=== PATIENT | male | born 1945 | race Caucasian/White ===

== ENCOUNTER 2016-12-02 21:14 | Emergency (ER) | payer OTHER ==
[~2016-12-02] VITALS: Ht 165.1 cm; Wt 72.7 kg
[~2016-12-02 21:14] MED LIST: ASPI1TAB PO; CARA1TAB6 PO; CARVEDILOL; COMBAER6 INH; FERROUS GLUCONATE; LOSARTAN; METFORMIN; MIRA3350 PO; NITR4TASL SL; OMEP40CA2 PO; SUCR1TA PO; [UNRECOGNIZED DRUG - OTHER]
[2016-12-02 21:15] VITALS: BP 159/90
[2016-12-02] MEDS ORDERED: ALBU17IN INH (21:31)
[2016-12-02] MEDS ORDERED: CARV3.12 PO (21:31)
[2016-12-02] MEDS ORDERED: METF500T13 PO (21:31)
[2016-12-02] MEDS ORDERED: AMLO5TAB2 PO (21:31)
[2016-12-02] MEDS ORDERED: VALS1TAB46 PO (21:31)
[2016-12-02] MEDS ORDERED: COMBAER6 INH (21:31)
[2016-12-02] MEDS ORDERED: COLA100C5 PO (21:31)
[2016-12-02] MEDS ORDERED: OMEP40CA2 PO (21:31)
--- NOTE | 2016-12-03 00:30 | REPUSA ---
CLINICAL HISTORY: Edema. COMMENTS: Real time sonography with duplex doppler of the right lower extremity was performed with attention to the major deep venous structures. Evaluation reveals the right common femoral, superficial femoral and popliteal veins to be completely compressible without intraluminal thrombus. There is normal spontaneous phasic flow and augmentation . The greater saphenous/common femoral vein junction is patent. IMPRESSION: No evidence of DVT in right lower extremity. Thank you for your kind referral of this patient.
== END 2016-12-03 00:40 | disposition left against medical advice (07) ==
LOC: M ED 21:14
DX: M54.31 Sciatica, right side (principal); I25.2 Old myocardial infarction; I10 Essential (primary) hypertension; E78.5 Hyperlipidemia, unspecified; K21.9 Gastro-esophageal reflux disease without esophagitis; F17.200 Nicotine dependence, unspecified, uncomplicated; Z95.5 Presence of coronary angioplasty implant and graft; Z82.49 Family history of ischemic heart disease and other diseases of the circulatory system; Z79.82 Long term (current) use of aspirin; Z79.899 Other long term (current) drug therapy

== ENCOUNTER 2018-07-10 13:58 | Emergency (ER) | payer MEDICARE, OTHER ==
[~2018-07-10] VITALS: Ht 167.6 cm; Wt 77.3 kg
[~2018-07-10 13:58] MED LIST changes: -FURO20TA2
[2018-07-10] MEDS ORDERED: FURO20TA2 (14:10)
[2018-07-10 15:32] LABS: BASO # 0.1 10^3/uL (0.0-0.2); BASO % 0.9 % (0.0-1.0); EOS # 0.4 10^3/uL (0.0-0.50); EOS % 4.7 % (0.0-3.0); HEMATOCRIT 36.8 % (42.0-52.0); HEMOGLOBIN 11.7 g/dl (13.5-17.5); LYMPH # 1.8 10^3/uL (1.5-4.5); LYMPH % 23.4 % (24.0-44.0); MEAN CORPUSCULAR HGB CONC 31.8 g/dl (32.0-36.5); MEAN CORPUSCULAR VOLUME 84.8 fl (80.0-96.0); MONO # 0.8 10^3/uL (0.0-0.8); MONO % 9.7 % (0.0-5.0); NEUTROPHILS # 4.7 10^3/uL (1.8-7.7); NEUTROPHILS % 60.8 % (36.0-66.0); PLATELET COUNT, AUTOMATED 362 10^3/uL (150-450); RED BLOOD COUNT 4.34 10^6/uL (4.30-6.10); WHITE BLOOD COUNT 7.8 10^3/uL (4.0-10.0)
[2018-07-10] MEDS: GASTROGRAFIN SOLUTION 30ML PO SCH ×2 (15:32→16:05)
[2018-07-10 15:51] LABS: INR 1.01; PROTHROMBIN TIME 13.4 SECONDS (12.1-14.4)
[2018-07-10 15:52] LABS: PARTIAL THROMBOPLASTIN TIME 37.5 SECONDS (25.4-37.6)
[2018-07-10 15:53] LABS: ALBUMIN 4.3 GM/DL (3.2-5.2); BILIRUBIN,DIRECT 0.1 MG/DL (0.0-0.2); BILIRUBIN,TOTAL 0.3 MG/DL (0.2-1.0); CALCIUM LEVEL 8.9 MG/DL (8.8-10.2); CREATININE FOR GFR 1.62 MG/DL (0.70-1.30); GLOMERULAR FILTRATION RATE 44.7 (>42); POTASSIUM SERUM 4.6 MEQ/L (3.5-5.1); TOTAL PROTEIN 8.5 GM/DL (6.4-8.2)
--- NOTE | 2018-07-10 17:53 | REP ---
CT ABDOMEN AND PELVIS WITH ORAL CONTRAST: CT abdomen and pelvis performed with oral contrast, without IV contrast. Sagittal and coronal reconstruction images are performed. Comparison made with prior study of 12/29/2015. There is calcified plaquing again seen bilaterally in the lung bases with mild interstitial fibrosis. The liver is grossly unremarkable as is the gallbladder. Calcified granulomas are seen in the spleen. The adrenals and pancreas are grossly unremarkable. There is mild to moderate right renal atrophy. There is no hydronephrosis or nephrolithiasis bilaterally. There is a 1 cm cyst in the lateral left kidney. There is moderate atherosclerotic calcification of the abdominal aorta with fusiform aneurysmal dilatation of the distal abdominal aorta 4.2 cm in maximum AP dimension. This has increased since prior study in 2016 when AP diameter was 3.3 cm. There is no adenopathy. There is no free air or free fluid. No bowel wall thickening is seen. There is no evidence of obstruction or diverticulitis. No pelvic mass is seen. There is a small left inguinal hernia containing fat. Metallic clips are seen in the right inguinal region. Urinary bladder is grossly unremarkable. IMPRESSION: No evidence of appendicitis, diverticulitis or bowel obstruction. Small left inguinal hernia contains fat. There is a distal abdominal aortic aneurysm 4.2 cm in AP dimension which has increased since the 2016 exam when it measured 3.3 cm. No other acute finding. Electronically Signed by Gallo Zabala MD 07/11/2018 01:31 P
[2018-07-10 18:32] VITALS: BP 172/99
--- NOTE | 2018-07-11 13:48 | ED PDOC ---
Post-Departure Follow-Up vivien savage and garth faxed formal report of ct abd/p for fu Jason Larios MD Jul 11, 2018 13:48
== END 2018-07-10 18:32 | disposition home or self-care (01) ==
LOC: M ED 13:58
DX: K59.00 Constipation, unspecified (principal); I71.4 Abdominal aortic aneurysm, without rupture; R10.9 Unspecified abdominal pain; Z79.899 Other long term (current) drug therapy; Z79.82 Long term (current) use of aspirin; Z79.84 Long term (current) use of oral hypoglycemic drugs
CPT/HCPCS: 36415; 74176; 80048; 80076; 83690; 85025; 85610; 85730; 86140; 86850; 86900; 86901; 99284; Q9963

== ENCOUNTER → 2018-07-10 | Outpatient (REF) | payer MEDICARE ==
[~2018-07-10] MED LIST changes: +ALBU17IN INH; +AMLO5TAB6 PO; +CARV3.12 PO; +COLA100C5 PO; +FURO20TA2; +METF500T13 PO; +VALS1TAB46 PO
== END ==
LOC: M LAB REF 15:44
PROVIDERS: ATTEND Internal Medicine
DX: R10.9 Unspecified abdominal pain (principal)

== ENCOUNTER → 2018-09-06 | Outpatient (REF) | payer MEDICARE ==
[~2018-09-06] MED LIST changes: -ASPI1TAB PO; +ASPI81TA26 PO; +FURO20TA2; -VALS1TAB46 PO; +VALS1TAB66 PO
== END ==
LOC: M LAB REF 12:56
PROVIDERS: ATTEND Internal Medicine
DX: E87.0 Hyperosmolality and hypernatremia (principal)

== ENCOUNTER → 2018-11-20 | Outpatient (REF) | payer MEDICARE ==
[2018-11-20 19:02] LABS: PERCENT SATURATION 11.2 % (19.7-50.0)
== END ==
LOC: M LAB REF 16:54
PROVIDERS: ATTEND Internal Medicine
DX: D50.9 Iron deficiency anemia, unspecified (principal)

== ENCOUNTER → 2018-11-28 | Outpatient (CLI) | payer MEDICARE ==
--- NOTE | 2018-11-29 04:10 | REP ---
Clinical: Lung screening. History smoking. Comparison: 06/24/2016 Technique: Axial low-dose noncontrast images from the thoracic inlet to the upper abdomen using lung screening technique. Findings: Moderate stable COPD/emphysematous changes as well as scattered partially calcified and noncalcified bilateral pleural plaques are again appreciated and relatively similar/stable in appearance. No acute consolidation, obvious parenchymal nodule or mass lesion identified. No pleural effusion. No pneumothorax. Tracheobronchial tree demonstrates mild bronchiectasis related to emphysematous disease. Mediastinum demonstrates atherosclerotic changes of the coronary arteries without cardiomegaly. Osseous structures are intact. Impression: Lung-RADS category II-S. COPD and emphysematous changes along with scattered nodular pleural plaques relatively stable. Electronically Signed by Mookie Briggs MD 11/29/2018 04:02 A
== END ==
LOC: M RAD 09:28
PROVIDERS: ATTEND Internal Medicine
DX: Z87.891 Personal history of nicotine dependence (principal); R91.8 Other nonspecific abnormal finding of lung field; J44.9 Chronic obstructive pulmonary disease, unspecified

== ENCOUNTER → 2019-02-11 | Outpatient (REF) | payer MEDICARE ==
[~2019-02-11] MED LIST changes: -OMEP40CA2 PO; +OMEP40CA97 PO
[2019-02-11 17:25] LABS: PERCENT SATURATION 8.1 % (19.7-50.0)
== END ==
LOC: M LAB REF 17:02
PROVIDERS: ATTEND Internal Medicine
DX: D50.9 Iron deficiency anemia, unspecified (principal)

== ENCOUNTER → 2019-04-26 | Outpatient (REF) | payer MEDICARE ==
[2019-04-26 14:06] LABS: PERCENT SATURATION 7.7 % (19.7-50.0)
== END ==
LOC: M LAB REF 13:23
PROVIDERS: ATTEND Internal Medicine
DX: D50.9 Iron deficiency anemia, unspecified (principal)

== ENCOUNTER 2019-06-23 11:07 | Observation (INO) | payer MEDICARE ==
[~2019-06-23] VITALS: Ht 167.6 cm; Wt 79.8 kg
[2019-06-23] MEDS ORDERED: ISOVUE-370 76% 100ML VIAL (Q9967) As Ordered ONE (11:30)
[2019-06-23 11:36] LABS: BASO # 0.1 10^3/uL (0.0-0.2); BASO % 1.1 % (0.0-1.0); EOS # 0.5 10^3/uL (0.0-0.5); EOS % 5.8 % (0.0-3.0); HEMATOCRIT 30.4 % (42.0-52.0); HEMOGLOBIN 9.4 g/dl (13.5-17.5); LYMPH # 1.5 10^3/uL (1.5-5.0); LYMPH % 17.1 % (24.0-44.0); MEAN CORPUSCULAR HEMOGLOBIN 25.5 pg (27.0-33.0); MEAN CORPUSCULAR HGB CONC 30.9 g/dl (32.0-36.5); MEAN CORPUSCULAR VOLUME 82.4 fl (80.0-96.0); MONO # 0.7 10^3/uL (0.0-0.8); NEUTROPHILS # 5.8 10^3/uL (1.5-8.5); NEUTROPHILS % 67.6 % (36.0-66.0); PLATELET COUNT, AUTOMATED 302 10^3/uL (150-450); RED BLOOD COUNT 3.69 10^6/uL (4.30-6.10); WHITE BLOOD COUNT 8.5 10^3/uL (4.0-10.0)
[2019-06-23] MEDS ORDERED: ALBU83IN NEB (11:51)
[2019-06-23] MEDS ORDERED: TELM1TAB33 PO (11:51)
[2019-06-23] MEDS ORDERED: ADV500INH INH (11:51)
[2019-06-23] MEDS ORDERED: ATOR40TA75 PO (11:51)
[2019-06-23] MEDS ORDERED: LINZ145C PO (11:51)
[2019-06-23] MEDS ORDERED: B-122500 PO (11:51)
[2019-06-23] MEDS ORDERED: METOCLOPRAMIDE INJ 10MG/2ML VIAL (J2765) IV ONE (12:00)
[2019-06-23 12:17] LABS: ALBUMIN 3.9 GM/DL (3.2-5.2); ALT/SGPT 14 U/L (12-78); BILIRUBIN,DIRECT 0.1 MG/DL (0.0-0.2); BILIRUBIN,TOTAL 0.3 MG/DL (0.2-1.0); BLOOD UREA NITROGEN 11 MG/DL (7-18); CALCIUM LEVEL 8.5 MG/DL (8.8-10.2); CARBON DIOXIDE LEVEL 22 MEQ/L (21-32); CHLORIDE LEVEL 101 MEQ/L (98-107); CK-MB VALUE MASS 2.5 NG/ML (<3.6); CPK CREATINE PHOSPHOKINASE 115 U/L (39-308); CREATININE FOR GFR 1.53 MG/DL (0.70-1.30); GLOMERULAR FILTRATION RATE 47.6 (>42); GLUCOSE, FASTING 147 MG/DL (70-100); MB/CK RELATIVE INDEX 2.17 (< OR =4); POTASSIUM SERUM 4.5 MEQ/L (3.5-5.1); SODIUM LEVEL 130 MEQ/L (136-145); TOTAL PROTEIN 7.6 GM/DL (6.4-8.2); TROPONIN I < 0.02 NG/ML (< 0.10)
--- NOTE | 2019-06-23 12:17 | REP ---
CT BRAIN WITHOUT IV CONTRAST: CT brain performed without IV contrast. Coronal reconstruction images are performed. There is moderate atrophy. There is mild periventricular small vessel ischemic change. There is no midline shift or mass effect. Zabala-white differentiation is otherwise well maintained. There is no acute intracranial hemorrhage or extra-axial fluid collection. There are mild vascular calcifications in the carotid siphons. There is mild mucosal thickening in the posterior left maxillary sinus. IMPRESSION: Chronic changes, as discussed above. No acute intracranial process identified. Electronically Signed by Gallo Zabala MD 06/23/2019 06:38 P
--- NOTE | 2019-06-23 12:29 | REP ---
CT CERVICAL SPINE: CT cervical spine performed without IV contrast. Sagittal and coronal reconstruction images are performed. There is no compression fracture. There is a slight retrolisthesis of C4 on C5 as well as C5 on C6, which appears to be due to posterior facet arthropathy. Small ligamentous calcification is seen posteriorly at C4-5. There is mild spurring of C3 through C6. There is moderate disc space narrowing and subchondral sclerosis at C3-4, C4-5, and C5-6. There is diffuse narrowing and sclerosis at the posterior facet joints with mild spurring. No abnormal density is seen in the spinal canal. There does appear to be some degree of spinal stenosis at the C4-5 level. IMPRESSION: Degenerative changes, as above. No acute fracture or dislocation. Electronically Signed by Gallo Zabala MD 06/23/2019 06:38 P
[2019-06-23] MEDS ORDERED: MECLIZINE 25 MG TABLET PO ONE ×2 (13:00→18:00)
--- NOTE | 2019-06-23 13:45 | REP ---
CT ANGIOGRAM OF THE NECK: CT angiogram neck performed following the intravenous administration of 75 mL of Isovue-370. Sagittal and coronal reconstruction images are performed. The aortic arch is normal in caliber with mild scattered atherosclerotic calcification and no evidence of dissection of the visualized thoracic aorta. Brachiocephalic artery demonstrates mild calcific plaquing and narrowing. Right common carotid artery demonstrates mild scattered calcified plaquing and narrowing with no significant stenosis or occlusion. Luminal narrowing is less than 50%. Left common carotid artery demonstrates mild scattered plaquing and narrowing with luminal narrowing less than 50% and no stenosis or occlusion. Vertebral arteries are symmetrical in appearance and patent with no significant stenosis or occlusion. Left subclavian artery is mildly narrowed proximally, with mild atherosclerotic plaquing. No mass is seen in the visualized neck soft tissues. There are degenerative changes of the cervical spine. IMPRESSION: Mild narrowing of bilateral common carotid and internal carotid arteries with no evidence of significant stenosis or occlusion. Vertebral arteries patent and symmetrical. Electronically Signed by Gallo Zabala MD 06/23/2019 06:39 P
--- NOTE | 2019-06-23 13:49 | REP ---
CT ANGIOGRAM OF THE BRAIN: CT angiogram of the brain is performed following the intravenous administration of 75 mL of Isovue-370. Sagittal, coronal, and 3D MIP reconstruction images are performed. Vertebral arteries are bilaterally patent and symmetrical in appearance. Basilar artery is normal in caliber with no stenosis. Posterior cerebral arteries are patent and symmetrical. There is mild bilateral plaquing and narrowing in the carotid siphons. Anterior middle cerebral arteries are patent and symmetrical in appearance. Anterior communicating arteries are patent. I see no aneurysm or AVM. IMPRESSION: Mild narrowing of the carotid siphons bilaterally. Otherwise, no evidence of intracerebral artery occlusion or definite stenosis. Electronically Signed by Gallo Zabala MD 06/23/2019 06:39 P
--- NOTE | 2019-06-23 13:53 | REP ---
CHEST, SINGLE VIEW: Single view of the chest is performed and compared to prior study of 06/08/2015. There is chronic bibasilar interstitial fibrosis, which appears stable. No new infiltrate is seen. Heart is upper limits of normal in size. There is mild calcification and tortuosity of the thoracic aorta. Mediastinal silhouette is unchanged. IMPRESSION: Stable chronic changes with no definite acute infiltrate. Electronically Signed by Gallo Zabala MD 06/23/2019 06:39 P
--- NOTE | 2019-06-23 14:12 | REP ---
RIGHT WRIST, FOUR VIEWS: Four views of right wrist performed. There is no acute fracture, dislocation, or intrinsic bone disease. Linear radiodensities are seen in the soft tissues lateral to the carpal bones, which may represent surgical sutures. Electronically Signed by Gallo Zabala MD 06/23/2019 06:40 P
[2019-06-23] MEDS ORDERED: IPRATROPIUM 0.5MG/ALBUTEROL 2.5MG INH SOL UD 3ML (DUONEB)(J7620) NEB ONE (15:15)
--- NOTE | 2019-06-23 16:06 | REPVR ---
PROCEDURE INFORMATION: Exam: MR Head Without Contrast Exam date and time: 06/23/2019 2:31 PM Age: 73 years old Clinical indication: Dizziness; Patient HX: Severe vertigo, nki, no priors TECHNIQUE: Imaging protocol: MR of the head without contrast. COMPARISON: CT Head without contrast 06/23/2019 11:33 AM FINDINGS: Brain: There is no restricted diffusion within the brain to suggest an acute infarct. There are scattered foci of FLAIR hyperintensity within the cerebral white matter. There is no mass effect or restricted diffusion associated with these foci. In a patient this age, this likely represents chronic small vessel ischemic disease. No cerebral edema. Mild nonspecific dilatation of the right superior ophthalmic vein. This measures 4 mm in diameter. No magnetic susceptibility intracerebral hemosiderin is visualized. No intracranial mass effect Ventricles: There is mild to moderate prominence of the ventricles and sulci, compatible with atrophy. Bones/joints: Unremarkable, as visualized. Soft tissues: Unremarkable, as visualized. Sinuses: Minimal mucosal thickening of the left sphenoid sinus and a few left ethmoid air cells. Minimal mucosal thickening of the left frontal sinus. Mastoid air cells: No mastoid effusion. Orbits: No acute abnormality visualized. IMPRESSION: 1. There is no restricted diffusion within the brain to suggest an acute infarct. 2. There are scattered foci of FLAIR hyperintensity within the cerebral white matter. In a patient this age, this likely represents chronic small vessel ischemic disease. 3. Mild to moderate atrophy. 4. Additional findings described above. Electronically signed by: Maikel White On 06/23/2019 16:06:14 PM
[2019-06-23] MEDS ORDERED: ONDA4TAB6 PO (16:32)
[2019-06-23] MEDS ORDERED: MECL1TAB31 PO (16:32)
[2019-06-23] MEDS ORDERED: CYAN100050 PO (17:50)
[2019-06-23] MEDS ORDERED: VENTAER INH (17:50)
[2019-06-23] MEDS ORDERED: FERR325T16 PO (17:53)
[2019-06-23] MEDS ORDERED: PROC2.5C PR (17:53)
[2019-06-23] MEDS ORDERED: DEXTROSE 50% 50 ML SYRINGE IV PRN (18:00)
[2019-06-23] MEDS ORDERED: GLUCAGON FOR INJ 1 MG VIAL (J1610) SC PRN (18:00)
[2019-06-23] MEDS ORDERED: ACETAMINOPHEN TAB 650MG DOSE (2X325MG) PO PRN (18:00)
[2019-06-23] MEDS ORDERED: GLUCOSE 4 GM CHEW TABLET PO PRN (18:00)
--- NOTE | 2019-06-23 18:12 | HPEPDOC ---
General Date of Admission Jun 23, 2019 at 11:08 Date of Service: Jun 23, 2019 Chief Complaint The patient is a 73-year-old male who presented to the emergency room with complaints of dizziness, described as the room spinning History of Present Illness Patient is a 73-year-old male with a PMhx of CAD s/p stent (2015), HTN, DLP, COPD, Irritable bowel syndrome and GERD who presented to the emergency room with complaints of dizziness that occurred suddenly this morning. Patient reports that he reported the room spinning. He walked his bathroom and had fallen.. He noted that he had landed on his R wrist and had bumped his head. Patient denied any loss of consciousness. Patient does report having episodes of nausea and vomiting with greater than 5 episodes today. Denied any blood, but containing mostly food items. Patient denies any ringing of his years. He does have poor hearing. In general any blurred vision or headaches. Patient does not express any fevers or chills. Denies any recent upper respiratory tract infections. At this time patient denies any shortness of breath, chest pain, palpitations, cough, abdominal pain, constipation, diarrhea, or urinary discomfort. Patient does report a poor appetite and is has experienced some weight loss. Home Medications Scheduled Amlodipine Besylate (Amlodipine Besylate) 5 Mg Tab, 5 MG PO DAILY, (Reported) Aspirin (Aspirin EC) 81 Mg Tab, 81 MG PO DAILY, (Reported) Atorvastatin Calcium (Atorvastatin Calcium) 40 Mg Tablet, 40 MG PO QHS, (Reported) Carvedilol (Carvedilol) 3.125 Mg Tab, 3.125 MG PO BID, (Reported) Cyanocobalamin (Vitamin B-12) (Vitamin B-12) 1,000 Mcg Tablet, 1,000 MCG PO DAILY, (Reported) Ferrous Gluconate (Ferrous Gluconate) 324 Mg Tablet, 324 MG PO Q2D, (Reported) Ipratropium/Albuterol Sulfate (Combivent Respimat 20-100 Mcg) 1 Aer Aer, 1 PUFF INH QID, (Reported) Metformin HCl (Metformin HCl) 500 Mg Tab, 500 MG PO BID, (Reported) Omeprazole (Omeprazole) 40 Mg Cap, 40 MG PO DAILY, (Reported) Salmeterol/Fluticasone (Advair 500-50 Diskus) 1 Each Blst.w.dev, 1 PUFF INH BID, (Reported) Telmisartan (Telmisartan) 20 Mg Tablet, 20 MG PO QHS, (Reported) Scheduled PRN Albuterol Sulf (Albuterol Sulfate) 2.5 Mg/3 Ml Vial.neb, 1 VIAL NEB Q4H PRN for SOB/WHEEZING, (Reported) Albuterol Sulfate (Ventolin Hfa) 18 Gm Hfa.aer.ad, 2 PUFF INH Q4H PRN for wheezing, (Reported) Hydrocortisone (Proctosol-Hc) 28.35 Gm Crm.pe.yady, [address] DAILY PRN for ITCHING/SWELLING, (Reported) Linaclotide (Linzess) 145 Mcg Capsule, 145 MCG PO DAILY PRN for CONSTIPATION, (Reported) Meclizine HCl (Meclizine HCl) 25 Mg Tablet, 25 MG PO Q8H PRN for VERTIGO/DIZZINESS Nitroglycerin (Nitrostat) 0.4 Mg Subl, 0.4 MG SL for ANGINA, (Reported) Ondansetron (Ondansetron Odt) 4 Mg Tab.rapdis, 4 MG PO Q6-8HP PRN for nausea/vomiting Allergies Coded Allergies: No Known Allergies (Unverified , 06/23/19) Past Medical History Medical History CAD s/p stent (2016), HTN, DLP, COPD, Irritable bowel syndrome and GERD Surgical History AAA s/p correction (2019) Family History - Mother with a history of bone cancer Social History - Denies the use of alcohol or illicit drugs; patient reports is a smoker of 60 years at 1 PPD - Denies recent travel or sick contacts - Lives with - Occupation; retired bone / snow shoveler Review of Systems Other systems 10 point review of systems complete, all negative otherwise stated in HPI Vital Signs - Vitals: BP 151/80, HR 87, RR 18, Sat 95%RA, Temp 97.6F - General: Lying in bed, No acute distress, Speaking in full sentences, AAOx3 - HEENT: NC, AT, PERRLA - CVS: RRR, +S1S2 - Lungs: Fair air entry bilaterally, No appreciable wheezing / rales / rhonchi - Abdomen: Soft, Non-distended, Non-tender - Extremities: No lower extremity edema, No calf tenderness - Neuro: No focal motor or sensory deficit - Skin: No visible rashes Laboratory Data Labs 24H Laboratory Tests 2 06/23/19 11:24: POC Glucose (Misc Panel) 153H, POC Sodium (Misc Panel) 132L, POC Potassium (Misc Panel) 4.5, POC Chloride (Misc Panel) 100, POC Total CO2 (Misc Panel) 22.0L, POC Blood Urea Nitrogen (Misc Panel 10, POC Ionized Calcium (Misc Panel) 4.8, POC Creatinine (Misc Panel) 1.5H, POC Hematocrit (Misc Panel) 32.0L 06/23/19 11:26: Immature Granulocyte % (Auto) 0.4, Neutrophils (%) (Auto) 67.6H, Lymphocytes (%) (Auto) 17.1L, Monocytes (%) (Auto) 8.0H, Eosinophils (%) (Auto) 5.8H, Basophils (%) (Auto) 1.1H, Neutrophils # (Auto) 5.8, Lymphocytes # (Auto) 1.5, Monocytes # (Auto) 0.7, Eosinophils # (Auto) 0.5, Basophils # (Auto) 0.1, Nucleated Red Blood Cells % (auto) 0.0, Anion Gap 7L, Glomerular Filtration Rate 47.6, Lactic Acid Level 2.7*H, Calcium Level 8.5L, Total Bilirubin 0.3, Direct Bilirubin 0.1, Aspartate Amino Transf (AST/SGOT) 15, Alanine Aminotransferase (ALT/SGPT) 14, Alkaline Phosphatase 65, Ammonia 22, Total Creatine Kinase 115, Creatine Kinase MB 2.5, Creatine Kinase MB Relative Index 2.17, Troponin I < 0.02, Total Protein 7.6, Albumin 3.9, Albumin/Globulin Ratio 1.05, Thyroid Stimulating Hormone (TSH) 1.720 06/23/19 11:30: Bedside Prothrombin Time INR 1.1, Prothrombin Time (MISC) 12.8 CBC/BMP Laboratory Tests 06/23/19 11:26 Plan / VTE VTE Prophylaxis Ordered?: Yes Plan Plan Vertigo - likely 2/2 BPPV, unlikely 2/2 CVA - Presented to the emergency room after expressing a sudden onset of vertigo described as the room spinning - Patient has no chest pain, shortness of breath, palpitations - Has not experienced any fevers, chills recently or any recent upper respiratory tract infections - CT head 06/22: Chronic changes, as discussed above. No acute intracranial process identified. - CTA neck 3/: Mild narrowing of bilateral common carotid and internal carotid arteries with no evidence of significant stenosis or occlusion. Vertebral arteries patent and symmetrical. - CTA brain 3: Mild narrowing of the carotid siphons bilaterally. Otherwise, no evidence of intracerebral artery occlusion or definite stenosis. - Brain MRI 3: 1. There is no restricted diffusion within the brain to suggest an acute infarct. 2. There are scattered foci of FLAIR hyperintensity within the cerebral white matter. In a patient this age, this likely represents chronic small vessel ischemic disease. 3. Mild to moderate atrophy. 4. Additional findings described above. - Patient has been given meclizine in the emergency room and is currently asymptomatic at rest - Patient be given a dose of meclizine now and will hold off on further dosing after midnight - Physical therapy with focus on vestibular therapy has been ordered for tomorrow morning - Will place patient in observation status with anticipation for discharge tomorrow morning CKD3 - Patient has received contrast in the emergency room - Will start patient on IV fluid hydration for renal protective effects - Will continue to monitor renal function Lactic acidosis - etiology not yet clear - Patient remains afebrile and hemodynamically stable - No leukocytosis noted - CXR 3: Stable chronic changes with no definite acute infiltrate. - Will check urinalysis - Will start IV fluids Fall - CT cervical spine 3: Degenerative changes, as above. No acute fracture or dislocation. - Wrist XR 3: There is no acute fracture, dislocation, or intrinsic bone dise ase. Linear radiodensities are seen in the soft tissues lateral to the carpal bones, which may represent surgical sutures. - c/w PT CAD s/p stent (2015) - c/w Carvedilol, ASA and Atorvastatin - c/w Nitroglycerine PRN HTN - c/w Amlodipine, Carvedilol with holding parameters - Will hold Telmisartan (re: Elevated Cr w/ contrast given) DLP - c/w Atorvastatin advair Chronic COPD - No evidence of exacerbation - c/w inhaled therapy as ordered Irritable bowel syndrome - Patient takes Linzess as an outpatient; will resume on discharge GERD - c/w Omeprazole DVT prophylaxis - Will start Heparin MARK ANTHONY ADAM MD Jun 23, 2019 18:12
[2019-06-23] MEDS ORDERED: NITROGLYCERIN 0.4 MG SUBL TABLET SL PRN (18:15)
[2019-06-23] MEDS ORDERED: IPRATROPIUM 0.5MG/ALBUTEROL 2.5MG INH SOL UD 3ML (DUONEB)(J7620) NEB PRN (18:15)
[2019-06-23 18:50] VITALS: BP 168/84
[2019-06-23 18:55] LABS: CALCIUM LEVEL 9.2 MG/DL (8.8-10.2); CREATININE FOR GFR 1.58 MG/DL (0.70-1.30); GLOMERULAR FILTRATION RATE 45.9 (>42); POTASSIUM SERUM 4.9 MEQ/L (3.5-5.1)
[2019-06-23] MEDS: NS 1,000 ML IV SCH (19:07)
[2019-06-23] MEDS: IPRATROPIUM 0.5MG/ALBUTEROL 2.5MG INH SOL UD 3ML (DUONEB)(J7620) NEB SCH (20:00)
--- NOTE | 2019-06-23 20:48 | ECGEPIP ---
[facility] - ED Test Date: 2019-06-23 Pat Name: CRISTIANO COLLINS Department: Room: - Gender: Male [employer] Engineer: : 1945 Requested By: ADALI Cantu Order Number: [id number] Reading MD: Douglas Mckeon Measurements Intervals [place] Rate: 73 P: 43 SD: 202 QRS: 28 QRSD: 93 T: 39 QT: 365 QTc: 403 Interpretive Statements SINUS RHYTHM BENIGN EARLY REPOLARIZATION SIMILAR TO 12/28/15 Electronically Signed on 06-23-2019 20:48:03 EST by Douglas Mckeon
[2019-06-23] MEDS: HumaLOG INSULIN (NovoLOG) PER UNIT SC SCH (21:00)
[2019-06-23] MEDS: ATORVASTATIN 20 MG TAB PO SCH (21:17)
[2019-06-23] MEDS: HEPARIN SOD (PORCINE) 5000 UNITS/ML VIAL (J1644 PER 1000UNITS) SC SCH (21:18)
[2019-06-23] MEDS: CARVedilol 3.125 MG TAB PO SCH (21:18)
[2019-06-23] MEDS: ADVAIR HFA 230/21MCG INHALER INH SCH (21:59)
[2019-06-23 22:00] VITALS: BP 128/68
[2019-06-23 22:43] LABS: OSMOLALITY URINE 264 MOSM/KG (500-800)
[2019-06-23 23:04] LABS: CREATININE,RANDOM URINE 64.9 MG/DL; SODIUM,RANDOM URINE 26 MEQ/L
[2019-06-24] MEDS: IPRATROPIUM 0.5MG/ALBUTEROL 2.5MG INH SOL UD 3ML (DUONEB)(J7620) NEB SCH ×4 (04:42→19:48)
[2019-06-24] MEDS ORDERED: methylPREDNISolone INJ 125 MG/2 ML VIAL (J2930) IV ONE (05:15)
[2019-06-24] MEDS: NS 1,000 ML IV SCH (05:48)
[2019-06-24] MEDS: HEPARIN SOD (PORCINE) 5000 UNITS/ML VIAL (J1644 PER 1000UNITS) SC SCH ×3 (05:48→21:44)
[2019-06-24 06:00] VITALS: BP 127/95
[2019-06-24 06:03] LABS: BASO # 0.1 10^3/uL (0.0-0.2); BASO % 0.8 % (0.0-1.0); EOS # 0.3 10^3/uL (0.0-0.5); EOS % 4.1 % (0.0-3.0); HEMATOCRIT 27.1 % (42.0-52.0); HEMOGLOBIN 8.5 g/dl (13.5-17.5); LYMPH # 1.4 10^3/uL (1.5-5.0); LYMPH % 17.8 % (24.0-44.0); MEAN CORPUSCULAR HEMOGLOBIN 25.5 pg (27.0-33.0); MEAN CORPUSCULAR HGB CONC 31.4 g/dl (32.0-36.5); MEAN CORPUSCULAR VOLUME 81.4 fl (80.0-96.0); MONO # 0.6 10^3/uL (0.0-0.8); MONO % 7.7 % (0.0-5.0); NEUTROPHILS # 5.2 10^3/uL (1.5-8.5); NEUTROPHILS % 69.1 % (36.0-66.0); PLATELET COUNT, AUTOMATED 290 10^3/uL (150-450); RED BLOOD COUNT 3.33 10^6/uL (4.30-6.10); WHITE BLOOD COUNT 7.6 10^3/uL (4.0-10.0)
[2019-06-24 06:19] LABS: CALCIUM LEVEL 8.6 MG/DL (8.8-10.2); CREATININE FOR GFR 1.61 MG/DL (0.70-1.30); GLOMERULAR FILTRATION RATE 44.9 (>42); MAGNESIUM LEVEL 2.1 MG/DL (1.8-2.4); POTASSIUM SERUM 4.3 MEQ/L (3.5-5.1)
[2019-06-24] MEDS: HumaLOG INSULIN (NovoLOG) PER UNIT SC SCH ×4 (07:30→21:44)
[2019-06-24] MEDS: ADVAIR HFA 230/21MCG INHALER INH SCH ×2 (08:17→22:40)
--- NOTE | 2019-06-24 08:22 | REP ---
Portable chest x-ray: Single view. History: Dyspnea. Comparison chest x-ray: June 23, 2019. Findings: Monitoring electrodes overlie the chest. Heart is not felt to be enlarged. Interstitial markings are little prominent in the bases unchanged. There are granulomatous calcifications in the perihilar region on the left. No new infiltrate. The aorta is slightly tortuous and calcific. Pulmonary vasculature is not increased. Impression: No acute disease. Electronically Signed by Tim Hall MD 06/24/2019 08:13 A
--- NOTE | 2019-06-24 09:44 | IPNPDOC ---
Text Note Date of Service The patient was seen on 06/24/19. NOTE S: Pt examined at bedside. Pt states that he is doing better than he was on ad mission. Admits to continued episodes of dizziness upon standing but feels back to normal when he is laying in bed. Pt states that the meclizine helped his symptoms. No acute events overnight. PE: Vitals: see below General: Pt sitting comfortably in bed, A&Ox3. HEENT: NCAT, EOMI, anicteric sclera, MMM CV: RRR, no murmurs or clicks or rub. No edema RESP: Diffuse wheezes located within the right lung francis ABD: soft, NT, ND. Benign EXTREMITIES: 2+ radial pulses b/l, able to move all extremities NEURO: no focal deficits or acute changes A: Pt is a 73 YOM who appears to be suffering from BPPV which led him to falling in his home on 06/23/2019. Pt states that his vertiginous symptoms have been improving and are not present at rest but are exacerbated upon moving. Pt has not been ambulating the the restroom or within the halls due to his symptoms. Pt was encouraged to ambulate as tolerable. P: Vertigo - likely 2/2 BPPV, unlikely 2/2 CVA - Presented to the emergency room after expressing a sudden onset of vertigo described as the room spinning - Patient continues to have no chest pain, shortness of breath, palpitations - Has not experienced any fevers, chills recently or any recent upper respiratory tract infections - CT head 06/22: Chronic changes, as discussed above. No acute intracranial process identified. - CTA neck 06/22: Mild narrowing of bilateral common carotid and internal carotid arteries with no evidence of significant stenosis or occlusion. Vertebral arteries patent and symmetrical. - CTA brain 06/22: Mild narrowing of the carotid siphons bilaterally. Otherwise, no evidence of intracerebral artery occlusion or definite stenosis. - Brain MRI 3: 1. There is no restricted diffusion within the brain to suggest an acute infarct. 2. There are scattered foci of FLAIR hyperintensity within the cerebral white matter. In a patient this age, this likely represents chronic small vessel ischemic disease. 3. Mild to moderate atrophy. 4. Additional find ings described above. - s/p meclizine; will continue to hold medication - Has worked with PT today; no evidence of of vertigo Acute Hypoxia - possibly 2/2 acute exacerbation of underlying lung disease, possibly 2/2 fluid overload - Reported shortness of breath that was more significant with ambulation - Required supplemental oxygen after he was noted to be 86% on room air - Repeat CXR shows no changes from previous imaging. - Pt has a history of unspecified restrictive lung disease based on past PFT - Pt will be started on IV solumedrol 60mg Q8 for possible exacerbation of underlying lung disease - Will DC IV fluids - Will continue to monitor and encourage incentive spirometry CKD3 - Patient has received contrast in the emergency room - Patient treated with IV fluid hydration for renal protective effects. - Cr has increased - Will D/c IVF (re; Hypoxia) s/p Lactic acidosis - etiology not yet clear - Patient remains afebrile and hemodynamically stable - No leukocytosis noted - Repeat CXR 06/23: Stable chronic changes with no definite acute infiltrate. - UA shows no acute infection - May be reactionary to possible COPD exacerbation Fall - CT cervical spine 06/22: Degenerative changes, as above. No acute fracture or dislocation. - Wrist XR 06/22: There is no acute fracture, dislocation, or intrinsic bone disease. Linear radiodensities are seen in the soft tissues lateral to the carpal bones, which may represent surgical sutures. - c/w PT and fall risk precautions CAD s/p stent (2015) - c/w Carvedilol, ASA and Atorvastatin - c/w Nitroglycerine PRN HTN - c/w Amlodipine, Carvedilol with holding parameters - Will hold Telmisartan (re: Elevated Cr w/ contrast given) DLP - c/w Atorvastatin advair Chronic COPD - No evidence of exacerbation - c/w inhaled therapy as ordered Irritable bowel syndrome - Patient takes Linzess as an outpatient; will resume on discharge GERD - c/w Omeprazole DVT prophylaxis - Will continue Heparin DISPO: Anticipate D/c tomorrow morning pending PT evaluation and response to steroids. VS,Fishbone, I+O VS, Fishbone, I+O Laboratory Tests 06/23/19 11:26 06/23/19 18:11 06/24/19 05:24 Vital Signs Date Time Temp Pulse Resp B/P (MAP) Pulse Ox O2 Delivery O2 Flow Rate FiO2 06/24/19 06:00 98.2 99 20 127/95 (662) 89 Nasal Cannula 1.0 I&O- Last 24 Hours up to 6 AM 06/24/19 06:00 Intake Total 960 ml Output Total 575 ml Balance 385 ml GME ATTESTATION GME ATTESTATION My faculty preceptor for this patient encounter was physically present during the encounter and was fully available. All aspects of the patient interview, examination, medical decision making process, and medical care plan development were reviewed and approved by the faculty preceptor. The faculty preceptor is aware and concurs with the plan as stated in the body of this note and will attest to such by his/her cosignature. ATTENDING NOTE I, Yanick Adam, have independently examined this patient and performed my own physical exam, as well as reviewed the documentation and edited where necessary. I have discussed in detail with the resident / student the findings and plan of treatment as documented by the resident / student and edited their note. I agree with their findings and treatment plan and have edited their documentation. I will continue to follow the patient during this hospital stay. FAVIOLA HAAS OMS-3 Jun 24, 2019 09:44 YANICK ADAM MD Jun 24, 2019 15:21
[2019-06-24] MEDS: OMEPRAZOLE 20 MG CAP PO SCH (11:02)
[2019-06-24] MEDS: CARVedilol 3.125 MG TAB PO SCH ×2 (11:02→21:43)
[2019-06-24] MEDS: ASPIRIN 81 MG ENTERIC TAB PO SCH (11:02)
[2019-06-24] MEDS: amLODIPine 5 MG TAB PO SCH (11:03)
[2019-06-24 11:58] LABS: HEMATOCRIT 30.5 % (42.0-52.0); HEMOGLOBIN 9.5 g/dl (13.5-17.5); MEAN CORPUSCULAR HEMOGLOBIN 25.7 pg (27.0-33.0); MEAN CORPUSCULAR HGB CONC 31.1 g/dl (32.0-36.5); MEAN CORPUSCULAR VOLUME 82.4 fl (80.0-96.0); PLATELET COUNT, AUTOMATED 303 10^3/uL (150-450); WHITE BLOOD COUNT 5.5 10^3/uL (4.0-10.0)
[2019-06-24 12:32] LABS: CALCIUM LEVEL 9.1 MG/DL (8.8-10.2); CREATININE FOR GFR 1.84 MG/DL (0.70-1.30); GLOMERULAR FILTRATION RATE 38.5 (>42); POTASSIUM SERUM 4.5 MEQ/L (3.5-5.1)
[2019-06-24] MEDS: methylPREDNISolone INJ 125 MG/2 ML VIAL (J2930) IV SCH ×2 (12:53→21:44)
[2019-06-24 14:00] VITALS: BP 133/90
[2019-06-24 16:00] VITALS: BP_SYST 138; BP_SYST 139; BP_SYST 150; BP_DIAS 67; BP_DIAS 72; BP_DIAS 88
[2019-06-24] MEDS: ATORVASTATIN 20 MG TAB PO SCH (21:43)
[2019-06-24 22:00] VITALS: BP 154/67
[2019-06-25] MEDS: IPRATROPIUM 0.5MG/ALBUTEROL 2.5MG INH SOL UD 3ML (DUONEB)(J7620) NEB SCH ×3 (01:19→13:31)
[2019-06-25] MEDS: HEPARIN SOD (PORCINE) 5000 UNITS/ML VIAL (J1644 PER 1000UNITS) SC SCH ×2 (05:35→13:13)
[2019-06-25] MEDS: methylPREDNISolone INJ 125 MG/2 ML VIAL (J2930) IV SCH (05:35)
[2019-06-25 06:00] VITALS: BP 152/73
[2019-06-25 06:10] LABS: BASO % 0.2 % (0.0-1.0); HEMATOCRIT 27.5 % (42.0-52.0); HEMOGLOBIN 8.7 g/dl (13.5-17.5); LYMPH # 0.8 10^3/uL (1.5-5.0); LYMPH % 6.4 % (24.0-44.0); MEAN CORPUSCULAR HEMOGLOBIN 25.6 pg (27.0-33.0); MEAN CORPUSCULAR HGB CONC 31.6 g/dl (32.0-36.5); MEAN CORPUSCULAR VOLUME 80.9 fl (80.0-96.0); MONO # 0.2 10^3/uL (0.0-0.8); MONO % 1.9 % (0.0-5.0); NEUTROPHILS # 11.1 10^3/uL (1.5-8.5); NEUTROPHILS % 90.4 % (36.0-66.0); PLATELET COUNT, AUTOMATED 331 10^3/uL (150-450); WHITE BLOOD COUNT 12.3 10^3/uL (4.0-10.0)
[2019-06-25 06:35] LABS: CREATININE FOR GFR 1.76 MG/DL (0.70-1.30); GLOMERULAR FILTRATION RATE 40.5 (>42); MAGNESIUM LEVEL 2.2 MG/DL (1.8-2.4); POTASSIUM SERUM 4.7 MEQ/L (3.5-5.1)
[2019-06-25] MEDS: ADVAIR HFA 230/21MCG INHALER INH SCH (07:52)
[2019-06-25 09:01] VITALS: BP 152/73
[2019-06-25] MEDS: amLODIPine 5 MG TAB PO SCH (09:01)
[2019-06-25] MEDS: CARVedilol 3.125 MG TAB PO SCH (09:01)
[2019-06-25] MEDS: ASPIRIN 81 MG ENTERIC TAB PO SCH (09:01)
[2019-06-25] MEDS: HumaLOG INSULIN (NovoLOG) PER UNIT SC SCH ×2 (09:01→13:12)
[2019-06-25] MEDS: OMEPRAZOLE 20 MG CAP PO SCH (09:02)
[2019-06-25] MEDS ORDERED: PRED10TA2 PO (10:49)
--- NOTE | 2019-06-25 13:48 | DS.PDOC ---
Discharge Summary General Date of Admission Jun 23, 2019 at 11:08 Date of Discharge 06/25/2019 Discharge Summary PROCEDURES PERFORMED DURING STAY: [None]. ADMITTING DIAGNOSES / DISCHARGE DIAGNOSES: 1. Vertigo - 2/2 Labyrinthitis 2. Acute COPD exacerbation COMPLICATIONS/CHIEF COMPLAINT: Vertigo. HISTORY OF PRESENT ILLNESS: Patient is a 73-year-old male with a PMhx of CAD s/p stent (2016), HTN , DLP, COPD, Irritable bowel syndrome and GERD who presented to the emergency room with complaints of dizziness that occurred suddenly on 06/23/2019. Patient reports that he reported the room spinning. He walked his bathroom and had fallen. He noted that he had landed on his R wrist and had bumped his head. Patient denied any loss of consciousness. Patient does report having prior episodes of nausea and vomiting with greater than 5 episodes on the day of admission. He denied any hemoptysis. Patient denies any ringing of his ears. He does have poor hearing. Denied any blurred vision or headaches. Patient does not express any fevers or chills. Denies any recent upper respiratory tract infections. At this time patient denies any shortness of breath, chest pain, palpitations, cough, abdominal pain, constipation, diarrhea, or urinary discomfort. Patient does report a poor appetite and is has experienced some weight loss. HOSPITAL COURSE: [facility]A as well as brain MRI which failed to show any acute infarct or central structural cause. While in the hospital PT was consulted and treated by vestibular PT who r/o BPPV per their input. It is suspected that his dizziness is 2/2 to labyrinthitis. Furthermore he suffered from an episode of acute hypoxia that was likely due to a COPD exacerbation. His hypoxia as well as dizziness have responded well to the methylprednisolone therapy. He will be DC on a prednisone taper. Plan of care discussed with pt and family. DISCHARGE MEDICATIONS: Please see below. ALLERGIES: Please see below. PHYSICAL EXAMINATION ON DISCHARGE: VITAL SIGNS: Please see below. GENERAL: Pt seen during and after completing vestibular therapy. Pt is sitting comfortably and ambulating well with assistance of wheeled walker. HEENT: Normocephalic, atraumatic, anicteric sclera, moist mucus membranes NECK: No bruits heard on exam, no JVD noted CARDIOVASCULAR EXAMINATION: RRR, no murmurs, rubs, or gallops RESPIRATORY EXAMINATION: Improved air movement. Wheezes present in bilateral lower lobes, no rhonchi or rales. ABDOMINAL EXAMINATION: Soft nontender, nondistended w/o guarding, rigidity, or rebound tenderness EXTREMITIES: 2+ radial pulses NEUROLOGICAL EXAMINATION: No horizontal, vertical, or rotatory nystagmus noted during vestibular therapy. LABORATORY DATA: Please see below. IMAGING: - CT head 06/22: Chronic changes, as discussed above. No acute intracranial process identified. - CTA neck 06/22: Mild narrowing of bilateral common carotid and internal carotid arteries with no evidence of significant stenosis or occlusion. Vertebral arteries patent and symmetrical. - CTA brain 06/22: Mild narrowing of the carotid siphons bilaterally. Otherwise, no evidence of intracerebral artery occlusion or definite stenosis. - Brain MRI 06/22: 1. There is no restricted diffusion within the brain to suggest an acute infarct. 2. There are scattered foci of FLAIR hyperintensity within the cerebral white matter. In a patient this age, this likely represents chronic small vessel ischemic disease. 3. Mild to moderate atrophy. 4. Additional findings described above. - CT cervical spine 06/22: Degenerative changes, as above. No acute fracture or dislocation. - Wrist XR 06/22: There is no acute fracture, dislocation, or intrinsic bone disease. Linear radiodensities are seen in the soft tissues lateral to the carpal bones, which may represent surgical sutures. PROGNOSIS: Fair ACTIVITY: As tolerated DIET: Normal Diet DISPOSITION: Home ITEMS TO FOLLOWUP ON ON OUTPATIENT: 1. Follow up with PCP in 1 week. 2. Follow up with outpatient vestibular physical therapist. 3. Continue prednisone taper. DISCHARGE CONDITION: Stable. TIME SPENT ON DISCHARGE: Greater than 39 minutes. Vital Signs/I&Os Vital Signs Date Time Temp Pulse Resp B/P (MAP) Pulse Ox O2 Delivery O2 Flow Rate FiO2 06/25/19 09:01 102 152/73 06/25/19 06:00 98.6 18 95 Nasal Cannula 1.0 I&O- Last 24 Hours up to 6 AM 06/25/19 06:00 Intake Total 2045 ml Output Total 675 ml Balance 1370 ml Laboratory Data Labs 24H Laboratory Tests 2 06/24/19 16:44: Bedside Glucose (Misc Panel) 227H 06/24/19 20:37: Bedside Glucose (Misc Panel) 307H 06/25/19 05:37: Immature Granulocyte % (Auto) 1.1, Neutrophils (%) (Auto) 90.4H, Lymphocytes (%) (Auto) 6.4L, Monocytes (%) (Auto) 1.9, Eosinophils (%) (Auto) 0.0, Basophils (%) (Auto) 0.2, Neutrophils # (Auto) 11.1H, Lymphocytes # (Auto) 0.8L, Monocytes # (Auto) 0.2, Eosinophils # (Auto) 0.0, Basophils # (Auto) 0.0, Nucleated Red Blood Cells % (auto) 0.0, Anion Gap 8, Glomerular Filtration Rate 40.5L, Calcium Level 9.0, Magnesium Level 2.2 06/25/19 11:49: Bedside Glucose (Misc Panel) 156H CBC/BMP Laboratory Tests 06/25/19 05:37 FSBS Laboratory Tests Test 06/24/19 16:44 06/24/19 20:37 06/25/19 11:49 Range/Units Bedside Glucose (Misc Panel) 227 307 156 83-110 MG/DL Microbiology Microbiology 06/24/19 Respiratory Virus Panel (PCR) (MARTHA) - Final, Complete Discharge Medications Scheduled Amlodipine Besylate (Amlodipine Besylate) 5 Mg Tab, 5 MG PO DAILY, (Reported) Aspirin (Aspirin EC) 81 Mg Tab, 81 MG PO DAILY, (Reported) Atorvastatin Calcium (Atorvastatin Calcium) 40 Mg Tablet, 40 MG PO QHS, (Reported) Carvedilol (Carvedilol) 3.125 Mg Tab, 3.125 MG PO BID, (Reported) Cyanocobalamin (Vitamin B-12) (Vitamin B-12) 1,000 Mcg Tablet, 1,000 MCG PO DAILY, (Reported) Ferrous Gluconate (Ferrous Gluconate) 324 Mg Tablet, 324 MG PO Q2D, (Reported) Ipratropium/Albuterol Sulfate (Combivent Respimat 20-100 Mcg) 1 Aer Aer, 1 PUFF INH QID, (Reported) Metformin HCl (Metformin HCl) 500 Mg Tab, 500 MG PO BID, (Reported) Omeprazole (Omeprazole) 40 Mg Cap, 40 MG PO DAILY, (Reported) Prednisone (Prednisone) 10 Mg Tablet, 10 MG PO TAPER 6 tabs daily x 3 days, 4 tabs daily x 3 days, 3 tabs daily x 3 days, 2 tabs daily x 3 days, 1 tab daily x 3 days and stop Salmeterol/Fluticasone (Advair 500-50 Diskus) 1 Each Blst.w.dev, 1 PUFF INH BID, (Reported) Telmisartan (Telmisartan) 20 Mg Tablet, 20 MG PO QHS, (Reported) Scheduled PRN Albuterol Sulf (Albuterol Sulfate) 2.5 Mg/3 Ml Vial.neb, 1 VIAL NEB Q4H PRN for SOB/WHEEZING, (Reported) Albuterol Sulfate (Ventolin Hfa) 18 Gm Hfa.aer.ad, 2 PUFF INH Q4H PRN for wheezing, (Reported) Hydrocortisone (Proctosol-Hc) 28.35 Gm Crm.pe.yady, 1 APPLIC MT DAILY PRN for ITCHING/SWELLING, (Reported) Linaclotide (Linzess) 145 Mcg Capsule, 145 MCG PO DAILY PRN for CONSTIPATION, (Reported) Meclizine HCl (Meclizine HCl) 25 Mg Tablet, 25 MG PO Q8H PRN for VERTIGO/DIZZINESS Nitroglycerin (Nitrostat) 0.4 Mg Subl, 0.4 MG SL for ANGINA, (Reported) Ondansetron (Ondansetron Odt) 4 Mg Tab.rapdis, 4 MG PO Q6-8HP PRN for nausea/vomiting Allergies Coded Allergies: No Known Allergies (Unverified , 06/23/19) GME ATTESTATION GME ATTESTATION My faculty preceptor for this patient encounter was physically present during the encounter and was fully available. All aspects of the patient interview, examination, medical decision making process, and medical care plan development were reviewed and approved by the faculty preceptor. The faculty preceptor is aware and concurs with the plan as stated in the body of this note and will attest to such by his/her cosignature. ATTENDING NOTE I, Yanick Adam, have independently examined this patient and performed my own physical exam, as well as reviewed the documentation and edited where necessary. I have discussed in detail with the resident / student the findings and plan of treatment as documented by the resident / student and edited their note. I agree with their findings and treatment plan and have edited their documentation. I will continue to follow the patient during this hospital stay. Time spent on discharge 20 minutes FAVIOLA HAAS OMS-3 Jun 25, 2019 13:48 YANICK ADAM MD Jun 25, 2019 14:50
[2019-06-25] MEDS ORDERED: methylPREDNISolone INJ 40 MG/1 ML VIAL (J2920) IV SCH (14:00)
== END 2019-06-25 13:58 | disposition home or self-care (01) ==
LOC: M ED 11:07 → M ED INP 11:08 → ENRESERVDT 18:16 → ENRESERVTM 18:16 → M MSPAV 19:04
PROVIDERS: ADMIT Internal Medicine; ATTEND Internal Medicine
DX: R42 Dizziness and giddiness (principal); H83.09 Labyrinthitis, unspecified ear; I25.10 Atherosclerotic heart disease of native coronary artery without angina pectoris; I12.9 Hypertensive chronic kidney disease with stage 1 through stage 4 chronic kidney disease, or unspecified chronic kidney disease; E11.9 Type 2 diabetes mellitus without complications; E78.49 Other hyperlipidemia; K58.8 Other irritable bowel syndrome; K21.9 Gastro-esophageal reflux disease without esophagitis; Z98.61 Coronary angioplasty status; Z79.82 Long term (current) use of aspirin; Z79.84 Long term (current) use of oral hypoglycemic drugs; E87.2 Acidosis; Z79.52 Long term (current) use of systemic steroids; Z79.899 Other long term (current) drug therapy; F17.218 Nicotine dependence, cigarettes, with other nicotine-induced disorders; N18.3 Chronic kidney disease, stage 3 (moderate)
CPT/HCPCS: 36415; 70450; 70496; 70498; 70551; 71045; 72125; 73110; 80047; 80048; 80076; 81001; 82140; 82550; 82553; 82570; 83605; 83735; 83880; 83930; 83935; 84300; 84443; 84484; 85025; 85027; 87486; 87581; 87633; 87798; 93005; 93041; 94640; 94760; 96361; 96374; 96375; 96376; 97112; 97116; 97530; 99285; G0378; J1644; J2765; J2920; J2930; Q9967

== ENCOUNTER → 2019-09-26 | Outpatient (REF) | payer MEDICARE ==
[~2019-09-26] MED LIST changes: +ADV500INH INH; +ALBU83IN NEB; +ATOR40TA75 PO; +B-122500 PO; +CYAN100050 PO; +FERR325T16 PO; +LINZ145C PO; +MECL1TAB31 PO; +ONDA4TAB6 PO; +PRED10TA2 PO; +PROC2.5C PR; +TELM1TAB33 PO; +VENTAER INH
[2019-09-26 13:18] LABS: C REACTIVE PROTEIN QUANTITATIV 0.54 MG/DL (0.00-0.30); PERCENT SATURATION 7.2 % (19.7-50.0)
== END ==
LOC: M LAB REF 11:33
PROVIDERS: ATTEND Internal Medicine
DX: N18.3 Chronic kidney disease, stage 3 (moderate) (principal); D50.9 Iron deficiency anemia, unspecified; J44.9 Chronic obstructive pulmonary disease, unspecified

== ENCOUNTER → 2020-01-02 | Outpatient (REF) | payer MEDICARE ==
[~2020-01-02] MED LIST changes: +AMLO1TAB24 PO; -AMLO5TAB6 PO
[2020-01-02 19:24] LABS: PERCENT SATURATION 10.7 % (19.7-50.0)
== END ==
LOC: M LAB REF 17:20
PROVIDERS: ATTEND Internal Medicine
DX: D50.9 Iron deficiency anemia, unspecified (principal)

== ENCOUNTER → 2020-02-03 | Outpatient (CLI) | payer MEDICARE ==
--- NOTE | 2020-02-06 10:40 | REP ---
LOW-DOSE LUNG SCREENING CHEST CT CLINICAL: Nicotine dependence. TECHNIQUE: Axial noncontrast low-dose lung screening CT. COMPARISON: 11/28/2018. FINDINGS: Moderate chronic obstructive pulmonary disease (COPD)/emphysematous changes along with scattered bullae and scattered scarring again noted and unchanged. Innumerable partially calcified pleural plaques noted bilaterally remain relatively stable. No acute pulmonary parenchymal consolidation, significant nodule, or mass lesion identified. No effusion. No pneumothorax. Tracheobronchial tree is patent. Atherosclerotic changes to the thoracic aorta and coronary arteries noted. IMPRESSION: * Stable chronic obstructive pulmonary disease (COPD)/emphysematous changes with scattered scarring, as well as innumerable partially calcified stable pleural plaques suggesting sequela of asbestosis. * No significant pulmonary parenchymal nodule or mass lesion appreciated. Lung- RADS Category 2-S. Management and recommendations include annual low-dose follow-up. MTDD
== END ==
LOC: M RAD 09:54
PROVIDERS: ATTEND Internal Medicine
DX: J44.9 Chronic obstructive pulmonary disease, unspecified (principal); F17.210 Nicotine dependence, cigarettes, uncomplicated

== ENCOUNTER → 2022-11-16 | Outpatient (CLI) | payer MEDICARE ==
[~2022-11-16] MED LIST changes: +ALBU2.5V10 NEB; -ALBU83IN NEB; +CYAN-1 PO; -CYAN100050 PO; +FERR324T21 PO; -FERR325T16 PO; +OMEP40CA4 PO; -OMEP40CA97 PO
== END ==
LOC: M RAD 10:05
PROVIDERS: ATTEND Nurse Practitioner
DX: R59.0 Localized enlarged lymph nodes (principal)

== ENCOUNTER → 2023-01-09 | Outpatient (CLI) | payer OTHER ==
[~2023-01-09] MED LIST changes: +MECL-209 PO; -MECL1TAB31 PO
== END ==
LOC: M RAD 09:21
PROVIDERS: ATTEND Nurse Practitioner
DX: R59.0 Localized enlarged lymph nodes (principal); R91.1 Solitary pulmonary nodule

== ENCOUNTER → 2023-08-03 | Outpatient (CLI) | payer OTHER | LOC: M RAD 14:18 | PROVIDERS: ATTEND Nurse Practitioner | DX: R91.1 Solitary pulmonary nodule (principal) ==

== ENCOUNTER → 2024-07-19 | Outpatient (CLI) | payer OTHER ==
[~2024-07-19] MED LIST changes: -ADV500INH INH; +ADVA1AER10 INH; +ONDA-282 PO; -ONDA4TAB6 PO
== END ==
LOC: M RAD 16:39
PROVIDERS: ATTEND Surgery
DX: I71.43 Infrarenal abdominal aortic aneurysm, without rupture (principal)

== ENCOUNTER → 2024-07-26 | Outpatient (CLI) | payer OTHER | LOC: M WHC 13:00 | PROVIDERS: ATTEND Student in an Organized Health Care Education/Training Program | DX: S22.088A Other fracture of T11-T12 vertebra, initial encounter for closed fracture (principal); M85.851 Other specified disorders of bone density and structure, right thigh ==

== ENCOUNTER → 2025-04-10 | Outpatient (REF) | payer OTHER ==
[2025-04-10 15:10] LABS: PLATELET COUNT, AUTOMATED 282 10^3/uL (150-450)
[2025-04-10 15:37] LABS: IRON (FE) 56.0 UG/DL (65-175)
[2025-04-10 15:38] LABS: ALT/SGPT 10.0 U/L (7.0-40); AST/SGOT 15.0 U/L (<34); CALCIUM LEVEL 8.7 MG/DL (8.3-10.6); CARBON DIOXIDE LEVEL 28.0 MMOL/L (20-31); CHLORIDE LEVEL 101.0 MMOL/L (98-107); CREATININE FOR GFR 1.85 MG/DL (0.70-1.30); GLOMERULAR FILTRATION RATE 36.4 (>35); PERCENT SATURATION 20.5 % (19.7-50.0); POTASSIUM SERUM 4.6 MMOL/L (3.5-5.1); SODIUM LEVEL 134.0 MMOL/L (136-145)
[2025-04-10 15:40] LABS: FREE T4 1.15 NG/DL (0.89-1.76); TOTAL 25(OH) VITAMIN D 121.0 NG/ML (20.0-100.0)
[2025-04-10 17:33] LABS: ESTIMATED AVERAGE GLUCOSE 123.0 MG/DL (60-110)
== END ==
LOC: M LAB REF 14:51
PROVIDERS: ATTEND Physician Assistant Medical
DX: E55.9 Vitamin D deficiency, unspecified (principal); R63.5 Abnormal weight gain; R42 Dizziness and giddiness; E11.69 Type 2 diabetes mellitus with other specified complication; D50.9 Iron deficiency anemia, unspecified